=== PATIENT | male | born 1995 | race Caucasian/White ===

== ENCOUNTER 2021-11-18 02:47 | Emergency (ER) | payer BC, SELFPAY ==
[2021-11-18 02:51] VITALS: BP 140/95; PULSE 45; RESP 18; TEMP 36.4; O2SAT 99; BMI 22.8
--- NOTE | 2021-11-18 03:01 | W.ED.ABDPA2 ---
HPI - Abdominal Pain General: Chief Complaint: Abdominal Pain Stated Complaint: N\V\ Abd Pain Time Seen by Provider: 11/18/21 02:56 Source: patient Mode of arrival: ambulatory Limitations: no limitations History of Present Illness: 26-year-old male states that roughly 4 to 5 hours ago he started having some upper abdominal pain that is worsened throughout the night. He states he also had nausea with 2 episodes of vomiting. States pain is sharp currently rates his pain a 4 out of 10 denies any worsening proving factors denies any fever denies any diarrhea. Associated Symptoms: Reports nausea and vomiting; Denies chills, dysuria and fever(s) Review of Systems Const: Denies: fever(s), chills, body aches or change in appetite Eyes: Denies: blurry vision or eye discomfort ENMT: Denies: throat pain or dental pain Card: Denies: chest pain Resp: Denies: dyspnea GI: Reports: abdominal pain, nausea and vomiting : Denies: dysuria Musc: Denies: neck pain or back pain Skin/Breast: Denies: rash Neuro: Denies: headache(s) Psych: Denies: depression Artur/Lymph: Denies: easy bruising All/Imm: Denies: urticaria PFSH ED PFSH: Medical History (Updated 11/18/21 @ 05:20 by Rachana Teague MD) No pertinent past medical history Social History Substance/Drug Use: never Physical Exam Const: COMMON NORMALS: no acute distress, patient oriented x3 and healthy appearing HENMT: COMMON NORMALS: normocephalic and atraumatic HEAD & SCALP: normocephalic and atraumatic Eye: COMMON NORMALS: Equal, round and reactive pupils present and EOMs intact bilaterally PUPIL: Yes Equal, round and reactive pupils present Neck/C-Spine: COMMON NORMALS: full ROM and supple Chest: COMMONS NORMALS: normal inspection of the chest and normal palpation of entire chest wall Resp: COMMON NORMALS: normal respiratory effort, No retractions, No use of accessory muscles and clear to auscultation bilaterally AUSCULTATION: clear to auscultation bilaterally Cardio: COMMON NORMALS: regular rhythm and No murmurs present (Cardio) RATE: bradycardic RHYTHM: regular rhythm GI: COMMON NORMALS: Normal to inspection, nondistended, normoactive bowel sounds present, Soft to palpation, non-tender and no masses PALPATION: Yes Soft to palpation Extremity: COMMON NORMALS: normal to inspection and full ROM Neuro: COMMON NORMALS: patient oriented x3, moves all extremities and no focal motor deficits Psych: COMMON NORMALS: mental status grossly normal, Normal thought process present and cooperative THOUGHT PROCESS: Normal thought process present Skin: COMMON NORMALS: no rashes or lesions noted and no wounds GENERAL SKIN EXAM: no rashes or lesions noted Course Vital Signs: Vital signs: Vital Signs Temperature 97.5 F L 11/18/21 02:51 Pulse Rate 45 L 11/18/21 02:51 Respiratory Rate 16 11/18/21 03:31 Blood Pressure 140/95 11/18/21 02:51 Pulse Oximetry 99 11/18/21 03:31 MDM - Abdominal Pain Medical Decision Making Patient presents here with abdominal pain since improved. Could be viral in origin CT showed no acute abnormalities his blood work is normal as well we will place him on Zofran he is to follow-up with PCP and return if worsening he understands agrees to plan. Lab Data : 11/18/21 03:00 11/18/21 03:00 Labs/Radiology: Radiology Impressions Abdomen/Pelvis CT 11/18/21 03:13 IMPRESSION: 1. Diffuse heterogeneous enhancement of the liver with periportal edema is nonspecific but can be seen with a diffuse liver insult. 2. Moderate stool burden. Laboratory Results WBC 13.0 10^3/uL (4.0-10.0) H 11/18/21 03:00 RBC 4.87 10^6/uL (4.1-5.3) 11/18/21 03:00 Hgb 14.2 g/dL (11.7-16.6) 11/18/21 03:00 Hct 41.5 % (42.0-52.0) L 11/18/21 03:00 MCV 85.2 fl (80-94) 11/18/21 03:00 MCH 29.2 pg (28.0-34.0) 11/18/21 03:00 MCHC 34.2 g/dL (30.0-36.0) 11/18/21 03:00 RDW 12.8 % (12.1-15.1) 11/18/21 03:00 Plt Count 254 10^3/cmm (130-400) 11/18/21 03:00 MPV 10.5 fL (7.4-10.4) H 11/18/21 03:00 Neut % (Auto) 82.6 % 11/18/21 03:00 Lymph % (Auto) 12.8 % 11/18/21 03:00 [place] % (Auto) 3.4 % 11/18/21 03:00 Eos % (Auto) 0.4 % 11/18/21 03:00 Baso % (Auto) 0.4 % 11/18/21 03:00 Neut # (Auto) 10.75 10^3/uL (1.8-7.7) H 11/18/21 03:00 Lymph # (Auto) 1.7 10^3/uL (0.8-4.8) 11/18/21 03:00 [place] # (Auto) 0.4 10^3/uL (0.2-0.9) 11/18/21 03:00 Eos # (Auto) 0.1 10^3/uL (0.0-0.8) 11/18/21 03:00 Baso # (Auto) 0.1 10^3/uL (0.0-0.1) 11/18/21 03:00 Nucleated RBC % (auto) 0 % 11/18/21 03:00 Nucleated RBCs # 0.0 /100WBC 11/18/21 03:00 Sodium 139 mmol/L (136-145) 11/18/21 03:00 Potassium 3.3 mmol/L (3.5-5.1) L 11/18/21 03:00 Chloride 104 mmol/L (98-107) 11/18/21 03:00 Carbon Dioxide 23 mmol/L (22-29) 11/18/21 03:00 Anion Gap 15.3 (5-19) 11/18/21 03:00 BUN 12 mg/dL (6-20) 11/18/21 03:00 Creatinine 0.7 mg/dL (0.7-1.2) 11/18/21 03:00 GFR Calculation 138.6 mL/min (90-130) H 11/18/21 03:00 Glucose 124 mg/dL (65-115) H 11/18/21 03:00 Calculated Osmolality 289 mOsm/kg (285-295) 11/18/21 03:00 Calcium 8.7 mg/dL (8.5-10.5) 11/18/21 03:00 Total Bilirubin 0.5 mg/dL (0.15-1.2) 11/18/21 03:00 AST 15 U/L (0-40) 11/18/21 03:00 ALT 15 U/L (0-41) 11/18/21 03:00 Alkaline Phosphatase 64 IU/L (40-130) 11/18/21 03:00 Total Protein 7.4 g/dL (6.6-8.7) 11/18/21 03:00 Albumin 4.7 g/dL (3.5-5.2) 11/18/21 03:00 Globulin 2.7 g/dL (1.3-4.6) 11/18/21 03:00 Lipase 15 U/L (13-60) 11/18/21 03:00 Discharge Plan Discharge Patient Disposition: Home Clinical Impression: Abdominal pain Qualifiers: Abdominal location: generalized Qualified Code(s): R10.84 - Generalized abdominal pain Prescriptions: New ondansetron 4 mg tablet,disintegrating 4 mg PO Q6H PRN (Reason: nausea and vomiting) Qty: 14 0RF Discharge Orders: Discharge ED (Routine); Ordered 11/18/21 Ordered By: Rachana Teague Referrals: Joshua Rajput Jr, MD [Staff Physician] - Discharge Diet: Advance as tolerated Discharge Activity: Resume usual activity Patient Instructions: Abdominal Pain (ED) Coding Level of Care Code ED [employer] for Chg Fwd Exam Comprehensive
[2021-11-18 03:08] LABS: Basophils # 0.1 10^3/uL (0.0-0.1); Basophils % 0.4 %; Eosinophils # 0.1 10^3/uL (0.0-0.8); Eosinophils % 0.4 %; Hematocrit 41.5 % (42.0-52.0); Hemoglobin 14.2 g/dL (11.7-16.6); Lymphocytes # 1.7 10^3/uL (0.8-4.8); Lymphocytes % 12.8 %; Mean Corpuscular HGB Conc 34.2 g/dL (30.0-36.0); Mean Corpuscular Hemoglobin 29.2 pg (28.0-34.0); Mean Corpuscular Volume 85.2 fl (80-94); Mean Platelet Volume 10.5 fL (7.4-10.4); Monocytes # 0.4 10^3/uL (0.2-0.9); Monocytes % 3.4 %; Neutrophils # 10.75 10^3/uL (1.8-7.7); Neutrophils % 82.6 %; Nucleated Red Blood Cells % 0 %; Platelet Count 254 10^3/cmm (130-400); Red Blood Count 4.87 10^6/uL (4.1-5.3); Red Cell Distribution Width 12.8 % (12.1-15.1)
--- NOTE | 2021-11-18 03:13 | CTR_ITS ---
PROCEDURE INFORMATION: Exam: CT Abdomen And Pelvis With Contrast Exam date and time: 11/18/2021 4:11 AM Age: 26 years old Clinical indication: Abdominal pain; Generalized; Additional info: Abd pain TECHNIQUE: Imaging protocol: Computed tomography of the abdomen and pelvis with contrast. Total images: 345 Radiation optimization: All CT scans at this facility use at least one of these dose optimization techniques: automated exposure control; mA and/or kV adjustment per patient size (includes targeted exams where dose is matched to clinical indication); or iterative reconstruction. Contrast material: OMNI 350; Contrast volume: 60 ml; Contrast route: INTRAVENOUS (IV); COMPARISON: No relevant prior studies available. RADIATION DOSE METRICS: Total DLP (mGy-cm): 984.93 FINDINGS: Liver: 16.8 cm Liver length. Diffuse heterogeneous enhancement of the liver with periportal edema is nonspecific but can be seen with a diffuse liver insult. Liver vascularity appears unremarkable. Gallbladder and bile ducts: Normal. No calcified stones. No ductal dilation. Pancreas: Normal. No ductal dilation. Spleen: Normal. No splenomegaly. Adrenal glands: Normal. No mass. Kidneys and ureters: Normal. No hydronephrosis. Stomach and bowel: Moderate stool burden. Appendix: No evidence of appendicitis. Intraperitoneal space: Unremarkable. No free air. No significant fluid collection. Vasculature: Incidental venous phlebolith noted. Lymph nodes: Unremarkable. No enlarged lymph nodes. Urinary bladder: Unremarkable as visualized. Reproductive: Unremarkable as visualized. Bones/joints: Unremarkable. No acute fracture. Soft tissues: Unremarkable. CT/CT abdomen pelvis w con* [id number] IMPRESSION: 1. Diffuse heterogeneous enhancement of the liver with periportal edema is nonspecific but can be seen with a diffuse liver insult. 2. Moderate stool burden.
[2021-11-18 03:31] VITALS: RESP 16; O2SAT 99
[2021-11-18] MEDS: ondansetron 2 mg/ML SDV 2 mL 4 MG IVP ×2 (03:31→05:40)
[2021-11-18] MEDS: sodium chloride 0.9% 1,000 ML 999 ML IV (03:31)
[2021-11-18] MEDS: morphine 4 mg/mL SDV 1 mL IVP ×2 (03:31→05:39)
[2021-11-18 03:33] LABS: Alanine Aminotransferase 15 U/L (0-41); Albumin Level 4.7 g/dL (3.5-5.2); Alkaline Phosphatase 64 IU/L (40-130); Aspartate Amino Transferase 15 U/L (0-40); Blood Urea Nitrogen 12 mg/dL (6-20); Calcium 8.7 mg/dL (8.5-10.5); Carbon Dioxide 23 mmol/L (22-29); Chloride 104 mmol/L (98-107); Globulin 2.7 g/dL (1.3-4.6); Glomerular Filtration Rate 138.6 mL/min (90-130); Glucose 124 mg/dL (65-115); Lipase 15 U/L (13-60); Osmolality Calculated 289 mOsm/kg (285-295); Sodium 139 mmol/L (136-145); Total Bilirubin 0.5 mg/dL (0.15-1.2); Total Protein 7.4 g/dL (6.6-8.7)
[2021-11-18 03:37] LABS: Anion Gap 15.3 (5-19); Potassium 3.3 mmol/L (3.5-5.1)
--- NOTE | 2021-11-18 04:52 | ECG_ITS ---
[facility] Test Date: 2021-11-18 Pat Name: Cole Matthews Department: Room: Gender: Male [employer] Attaching [employer] Operator: : 1995 Requested By: Rachana Teague Order Number: [id number] Kiran MD: Chago Batres M.D. Measurements Intervals [place] Rate: 41 P: 25 CA: 150 QRS: 23 QRSD: 108 T: 1 QT: 468 QTc: 388 Interpretive Statements SINUS BRADYCARDIA No previous ECG available for comparison Electronically Signed On 11-18-2021 17:56:14 CDT by Chago Batres M.D. [email or web address]
[2021-11-18 05:39] VITALS: RESP 16; O2SAT 99
[2021-11-18 05:40] VITALS: BP 139/93; PULSE 42; RESP 18; O2SAT 99
== END 2021-11-18 05:55 | disposition home or self-care (01) ==
PROVIDERS: Emergency Provider Emergency Medicine
DX: R10.84 Generalized abdominal pain (principal)
CPT/HCPCS: 74177; 80053; 83690; 85025; 93005; 96361; 96374; 96375; 96376; 99284; J2270; J2405; J7030; Q9967